=== PATIENT | male | born 1975 | race Caucasian/White ===

== ENCOUNTER 2020-12-16 16:48 | Emergency (ER) | payer SELFPAY ==
[~2020-12-16] VITALS: Ht 170.2 cm; Wt 72.6 kg
[2020-12-16 16:55] VITALS: BP 159/120
--- NOTE | 2020-12-16 17:15 | NUR ---
PT IN WHEELCHAIR TO LOBBY
[2020-12-16] MEDS ORDERED: HYDROcodone/APAP 5/325 MG 1 TAB TAB PO ONE (17:55)
--- NOTE | 2020-12-16 18:04 | NUR ---
45 Y/O TRANSINT MALE BIBA C/O L EYE PAIN X14 MONTHS. PT STATES HE FELL AND "POPPED" HIS EYE ON A SPRINKLER AND HAD EYE DRAINED AND "SEWED" IT UP X14 MONTHS AGO. PAIN HAS INCREASED OVER THE PAST MONTH. 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 EYE APPEARS WHITE WITH DISCHARGE PMH:HLD, HTN, CVA, COPD NKDA RESTING QUIETLY AWAITING A BED, MEDICATED FOR PAIN.
[2020-12-16] MEDS ORDERED: IBUP-2213 PO (21:02)
--- NOTE | 2020-12-16 22:18 | NUR ---
PT UP FOR DISCHARGE AND LEFT WITHOUT D/C PAPERWORK
[2020-12-17] MEDS ORDERED: FAMO-90 PO (12:13)
== END 2020-12-16 22:18 | disposition home or self-care (01) ==
LOC: MED 16:48
DX: H57.12 Ocular pain, left eye (principal); F19.10 Other psychoactive substance abuse, uncomplicated; F17.290 Nicotine dependence, other tobacco product, uncomplicated
CPT/HCPCS: 99283

== ENCOUNTER 2020-12-17 06:49 | Emergency (ER) | payer SELFPAY ==
[~2020-12-17] VITALS: Ht 170.2 cm; Wt 72.6 kg
[~2020-12-17 06:49] MED LIST: IBUP-2213 PO
[2020-12-17 07:04] VITALS: BP 176/98
--- NOTE | 2020-12-17 07:07 | NUR ---
TO LOBBY A/W BED AMBULATORY
--- NOTE | 2020-12-17 07:35 | NUR ---
LAURA SWAB COLLECTED AND WALKED TO LAB
--- NOTE | 2020-12-17 07:36 | NUR ---
HAYDE SANCHEZ SAMPLE COLLECTED AND WALKED TO LAB
--- NOTE | 2020-12-17 07:50 | NUR ---
LABS COLLECTED AND WALKED TO LAB
[2020-12-17 08:02] LABS: BASOPHILS # (AUTO) 0.1 K/uL (0.00-0.22); BASOPHILS % (AUTO) 1.4 % (0.0-2.0); EOSINOPHILS # (AUTO) 0.1 K/uL (0-0.4); EOSINOPHILS % (AUTO) 1.5 % (0.0-4.0); HEMATOCRIT 44.8 % (36-52); HEMOGLOBIN 15.5 g/dL (12.0-18.0); LYMPHOCYTES # (AUTO) 1.7 K/uL (2.0-11.5); LYMPHOCYTES % (AUTO) 30.5 % (20.5-51.1); MEAN CORPUSCULAR HEMOGLOBIN 40 pg (27-31); MEAN CORPUSCULAR HGB CONC 35 g/dL (33-37); MONOCYTES # (AUTO) 0.3 K/uL (0.8-1.0); MONOCYTES % (AUTO) 5.2 % (1.7-9.3); NEUTROPHILS # (AUTO) 3.3 K/uL (1.8-7.7); NEUTROPHILS % (AUTO) 61.4 % (42.2-75.2); PLATELET COUNT (AUTO) 104 K/uL (140-450); RED BLOOD CELL COUNT(AUTO) 3.93 MIL/uL (4.20-6.10); RED CELL DISTRIBUTION WIDTH 16.7 % (11.6-13.7); WHITE BLOOD COUNT (AUTO) 5.4 K/uL (4.8-10.8)
[2020-12-17 08:19] LABS: ALBUMIN 3.9 g/dL (3.4-5.0); ANION GAP 18.4 (8-16); CARBON DIOXIDE 24.7 mmol/L (21-32); CREATININE 1.1 mg/dL (0.6-1.3); POTASSIUM 3.1 mmol/L (3.5-5.1); TOTAL BILIRUBIN 1.4 mg/dL (0.0-1.0)
--- NOTE | 2020-12-17 08:30 | NUR ---
45 YO MALE BIBS WITH C/O N/V/D X2DAYS. PT STATES THERE IS BLOOD IN VOMIT AND DIARRHEA AT TIMES. BS ACTIVEX4 QUAD, TENDERNES TO ABD DURING PALPATION. PT C/O WEAKNESS, DENIES SYNCOPAL EPISODE. STATES, HE HAD A STROKE [id number] AGO AND WAS HOSPITALIZED AT [facility]. C/O HEADACHE 10/10 ACHING, NON RADIATING. PT BED IN LOWEST POSITION, SIDE RAILS UP X2 FOR SAFETY. PMH: HTN, STROKE X1M AGO ALLERGIES: NONE
--- NOTE | 2020-12-17 08:31 | NUR ---
MD HARO AT BED SIDE EVALUATING PT.
[2020-12-17] MEDS ORDERED: ALUMINUM HYD/MAG/SIMETHICONE 30 ML UDC PO ONE (08:35)
[2020-12-17] MEDS ORDERED: ONDANSETRON 4 MG/2 ML VIAL IVP ONE (08:35)
[2020-12-17] MEDS ORDERED: FAMOTIDINE 20 MG/2 ML VIAL IVP ONE (08:35)
[2020-12-17] MEDS ORDERED: NACL 0.9% 1,000 ML IV ONE (08:35)
[2020-12-17] MEDS: chlordiazePOXIDE 25 MG CAP PO SCH ×2 (08:55→13:09)
[2020-12-17 08:58] LABS: APPEARANCE,URINE HAZY (CLEAR); BILIRUBIN,URINE 1+ (NEGATIVE); BLOOD, URINE NEGATIVE (NEGATIVE); COLOR,URINE ORANGE (YELLOW); LEUKOCYTE ESTERASE ,URINE NEGATIVE (NEGATIVE); NITRITE, URINE NEGATIVE (NEGATIVE); UGLUCOSE NEGATIVE (NEGATIVE)
--- NOTE | 2020-12-17 09:03 | NUR ---
PT IN BED RESTING. RR EVEN AND UNLABORED.
[2020-12-17] MEDS ORDERED: POTASSIUM CHL 20MEQ/D5-NS 1,000 ML IV ONE (09:45)
[2020-12-17] MEDS ORDERED: ACETAMINOPHEN EXTRA STRENGTH 500 MG TAB PO ONE (09:45)
--- NOTE | 2020-12-17 11:00 | NUR ---
PT IN BED RESTING, RR EVEN AND UNLABORED.
[2020-12-17] MEDS ORDERED: LORazepam 2 MG/ML VIAL ONE (11:15)
[2020-12-17] MEDS ORDERED: HALOPERIDOL IM 5 MG/ML VIAL ONE (11:15)
[2020-12-17] MEDS ORDERED: diphenhydrAMINE 50 MG/ML VIAL ONE (11:20)
--- NOTE | 2020-12-17 11:48 | NUR ---
VS TAKEN, STABLE. PT RESTING IN BED, PROVIDED ADDITIONAL WARM BLANKET. RR EVEN AND UNLABORED.
[2020-12-17] MEDS ORDERED: FAMO-90 PO (12:13)
--- NOTE | 2020-12-17 13:13 | NUR ---
Patient discharged with v/s stable. Written and verbal after care instructions given and explained. Patient alert, oriented and verbalized understanding of instructions. Ambulatory with steady gait. All questions addressed prior to discharge. ID band removed. Patient advised to follow up with PMD. Rx of FAMOTIDINE given. Patient educated on indication of medication including possible reaction and side effects. Opportunity to ask questions provided and answered. PT LEFT INSTRUCTIONS BEHIND.
[2020-12-17 13:37] VITALS: BP 119/89
== END 2020-12-17 13:13 | disposition home or self-care (01) ==
LOC: MED 06:49
DX: K29.20 Alcoholic gastritis without bleeding (principal); F10.129 Alcohol abuse with intoxication, unspecified; J44.9 Chronic obstructive pulmonary disease, unspecified; I10 Essential (primary) hypertension; Z20.822 Contact with and (suspected) exposure to COVID-19; Z86.73 Personal history of transient ischemic attack (TIA), and cerebral infarction without residual deficits; Y90.9 Presence of alcohol in blood, level not specified
CPT/HCPCS: 36415; 80053; 81003; 83690; 85025; 87426; 93005; 96361; 96365; 96366; 96375; 99284; J2405; J3490; J7030; J1200; J1630; J2060